=== PATIENT | female | born 1985 | race Hispanic/Latino ===

== ENCOUNTER 2022-04-22 23:06 | Emergency (ER) | payer SELFPAY ==
[~2022-04-22] VITALS: Ht 154.9 cm; Wt 68.9 kg
[2022-04-23] MEDS ORDERED: CIPRO500 MG PO (00:30)
[2022-04-23] MEDS ORDERED: NAPROSYN500 MG PO (00:30)
[2022-04-23] MEDS ORDERED: ONDANSETRON ODT4 MG PO (00:31)
[2022-04-23 00:56] VITALS: BP 116/65
== END 2022-04-23 00:56 | disposition home or self-care (01) ==
LOC: FSED 23:10
DX: R30.0 Dysuria (principal); M54.50 Low back pain, unspecified; R10.30 Lower abdominal pain, unspecified; R11.2 Nausea with vomiting, unspecified; G89.29 Other chronic pain; F17.210 Nicotine dependence, cigarettes, uncomplicated
CPT/HCPCS: 81003; 81025; 99282

== ENCOUNTER 2025-04-08 10:35 | Emergency (ER) | payer SELFPAY ==
[~2025-04-08] VITALS: Ht 154.9 cm; Wt 68.9 kg
[~2025-04-08 10:35] MED LIST: CIPRO500 MG PO; NAPROSYN500 MG PO; ONDANSETRON ODT4 MG PO
[2025-04-08 10:55] VITALS: PULSE 78; RESP 16; TEMP 98.8
[2025-04-08 11:59] LABS: CORONAVIRUS COVID-19 AG NEGATIVE (NEGATIVE)
[2025-04-08] MEDS ORDERED: VENTOLIN HFA18 GM INH (12:09)
[2025-04-08] MEDS ORDERED: PREDNISONE50 MG PO (12:09)
[2025-04-08] MEDS ORDERED: AZITHROMYCIN250 MG PO (12:09)
[2025-04-08 12:38] VITALS: BP 126/83; PULSE 72; RESP 14; O2SAT 100
== END 2025-04-08 12:22 | disposition home or self-care (01) ==
LOC: ER 10:56
DX: J06.9 Acute upper respiratory infection, unspecified (principal); B34.9 Viral infection, unspecified; R19.7 Diarrhea, unspecified; R06.2 Wheezing; F17.210 Nicotine dependence, cigarettes, uncomplicated; F41.9 Anxiety disorder, unspecified; M54.9 Dorsalgia, unspecified; G89.29 Other chronic pain; Z71.6 Tobacco abuse counseling; Z11.52 Encounter for screening for COVID-19
CPT/HCPCS: 99283

== ENCOUNTER 2025-04-11 09:12 | Emergency (ER) | payer OTHER ==
[~2025-04-11] VITALS: Ht 154.9 cm; Wt 68.9 kg
[~2025-04-11 09:12] MED LIST changes: +AZITHROMYCIN250 MG PO; +PREDNISONE50 MG PO; +VENTOLIN HFA18 GM INH
[2025-04-11 09:20] VITALS: PULSE 60; RESP 12; TEMP 98.5; O2SAT 100
[2025-04-11] MEDS: ONDANSETRON HCL INJ 2MG/ML 2ML 2 MG/ML VIAL IV STA (10:03)
[2025-04-11] MEDS: SODIUM CHLORIDE 0.9% 1000ML 1,000 ML IV STA (10:03)
[2025-04-11] MEDS: KETOROLAC TROMETHAMINE 30 MG/ML VIAL IV STA (10:04)
[2025-04-11 10:06] LABS: BASOPHILS % 0.2 % (0.0-1.0); EOSINOPHILS % 2.4 % (0.0-6.0); LYMPHOCYTES % 28.1 % (18.0-39.1); MONOCYTES % 5.1 % (4.4-11.3); NEUTROPHILS % 63.9 % (38.7-80.0); RED CELL DISTRIBUTION WIDTH 15.0 % (11.7-14.4)
[2025-04-11 10:16] LABS: LEUKOCYTE ESTERASE ,URINE NEGATIVE (NEGATIVE); PROTEIN,URINE DIPSTICK NEGATIVE (NEGATIVE)
[2025-04-11 10:17] LABS: AMPHETAMINES SCREEN,URINE NEGATIVE (NEGATIVE); OPIATES SCREEN,URINE NEGATIVE (NEGATIVE)
[2025-04-11 10:18] LABS: CANNABINOIDS SCREEN,URINE POSITIVE (NEGATIVE); COCAINE SCREEN,URINE NEGATIVE (NEGATIVE); METHADONE SCREEN, URINE NEGATIVE (NEGATIVE); URINE UROBILINOGEN 0.2 mg/dL (0.2 - 1)
[2025-04-11 10:29] LABS: INR 0.85
[2025-04-11 10:36] LABS: EST GLOMERULAR FILTRATION RATE 106 ML/MIN (>=60)
[2025-04-11 10:50] LABS: EPITHELIAL CELLS,URINE FEW /LPF; WBC,URINE (MAN) 0-5 /HPF (0-5)
[2025-04-11] MEDS ORDERED: METHOCARBAMOL500 MG PO (11:59)
== END 2025-04-11 12:50 | disposition home or self-care (01) ==
LOC: ER 09:20
DX: M54.9 Dorsalgia, unspecified (principal); G89.29 Other chronic pain; R10.30 Lower abdominal pain, unspecified; F12.10 Cannabis abuse, uncomplicated; F13.10 Sedative, hypnotic or anxiolytic abuse, uncomplicated; F41.9 Anxiety disorder, unspecified; Z71.51 Drug abuse counseling and surveillance of drug abuser; F17.210 Nicotine dependence, cigarettes, uncomplicated
CPT/HCPCS: 36415; 71045; 74176; 80053; 80307; 81001; 83690; 84702; 85025; 85610; 99284; J1885; J2405; J7030